=== PATIENT | male | born 1970 | race Caucasian/White ===

== ENCOUNTER 2016-07-01 10:53 | Emergency (ER) | payer SELFPAY | END 2016-07-01 12:16 | disposition home or self-care (01) | LOC: D.ER 10:53 | DX: S96.912A Strain of unspecified muscle and tendon at ankle and foot level, left foot, initial encounter (principal); X58.XXXA Exposure to other specified factors, initial encounter; Y93.89 Activity, other specified; Y92.89 Other specified places as the place of occurrence of the external cause; M25.472 Effusion, left ankle; I10 Essential (primary) hypertension; F17.200 Nicotine dependence, unspecified, uncomplicated ==